=== PATIENT | male | born 1965 | race Caucasian/White ===

== ENCOUNTER 2022-07-30 10:30 | Day surgery (SDC) | payer OTHER ==
[2022-07-26 14:02] LABS: Absolute Lymphocytes (CBC) 1.9 K/uL (0.7-4.9); Lymphocytes % 31.6 % (15.3-44.8); MCV 92.1 fL (80-100); MPV 7.9 fL (7.6-11.3)
--- NOTE | 2022-07-26 14:47 | RAD REPORT ---
EXAM DESCRIPTION: RAD - Chest Pa And Lat (2 Views) - 07/26/2022 2:40 pm CLINICAL HISTORY: Pre op pending heart catheterization Chest pain. COMPARISON: No comparisons FINDINGS: The lungs are mildly emphysematous. Vague area of nodularity in the retrosternal airspace on the lateral view seen. This could be a true nodule or related to artifact. The heart is normal in size. No displaced fractures. IMPRESSION: Vague nodularity retrosternal airspace could be true nodule or artifactual. Recommend CT chest followup for visualization on a nonemergent basis. Mild COPD. The USPSTF recommends annual screening for lung cancer with low-dose CT (LDCT) in adults aged 50 to 80 years who have a 20 pack-year smoking history and currently smoke or have quit within the past 15 years.
--- NOTE | 2022-07-28 07:21 | EKG ---
Test Date: 2022-07-26 Test Time: 13:41:59 Pilot: ALENA MEASUREMENT RESULTS: Intervals: Rate: 61 DC: 172 QRSD: 92 QT: 414 QTc: 416 [place]: P: 65 DC: 172 QRS: 61 T: 64 INTERPRETIVE STATEMENTS: Normal sinus rhythm Nonspecific ST abnormality Abnormal ECG No previous ECG available for comparison Electronically Signed On 07-28-22 07:15:12 CDT by Shayne Badillo
[2022-07-30] MEDS ORDERED: NA CHLORIDE 0.9% 500 ML ONE (10:53)
[2022-07-30] MEDS ORDERED: LIDOCAINE 1% 20 ML MDV ONE (12:43)
[2022-07-30] MEDS ORDERED: HEPA 1000U/500MLS 2,000 UNIT/1,000 ML BAG IV ONE (12:43)
[2022-07-30] MEDS ORDERED: FENTANYL CITR 100 MCG/2 ML ONE (13:17)
[2022-07-30] MEDS ORDERED: HEPARIN 5000 UNIT/ML 1 ML VIAL ONE (13:18)
[2022-07-30] MEDS ORDERED: MIDAZOLAM HCL 2 MG/2 ML INJ ONE (13:18)
[2022-07-30] MEDS ORDERED: ASPIRIN 325 MG TAB ONE (13:18)
[2022-07-30] MEDS ORDERED: TICAGRELOR 90 MG TABLET PO ONE (13:18)
[2022-07-30] MEDS ORDERED: CLOPIDOGREL 75 MG TABLET ONE (13:18)
[2022-07-30] MEDS ORDERED: VERAPAMIL HCL 10 MG/4 ML VIAL IV ONE (13:18)
[2022-07-30] MEDS ORDERED: ATROPINE SULF 1 MG/10 ML SYR IV ONE (13:19)
[2022-07-30] MEDS ORDERED: HEPARIN 10,000 UNIT/10 ML VIAL IV ONE (13:19)
[2022-07-30 16:20] VITALS: O2SAT 98
[2022-07-30 16:23] VITALS: BP 155/66
--- NOTE | 2022-07-30 21:14 | OP ---
Date of Procedure: 07/30/2022 Surgeon: MOY HORN Procedures Performed: 1.Selective coronary angiogram. 2.Left heart catheterization. Indication: Chest pain with normal stress test. Access: Right radial artery 6-Panamanian closed with TR band. Complications: None. Bleeding: Less than 20 mL. Description Of Procedure: After risks, benefits, and alternatives were explained, patient agreed to procedure and signed informed consent. Patient was brought into the cardiac catheterization laborato ry, prepped and draped in a sterile fashion. Then, I accessed right radial artery using pediatric mi cropuncture kit, placed a 6-Panamanian Slender sheath. Then, I took 5-Panamanian [place] 4.0 catheter into the aortic root over a J-wire, engaged left main and the right coronary artery, and took standard views. Catheter was pushed over the wire into the LV, measured LVEDP. Pullback did not record any gradien t. Then, removed the catheter and the sheath and placed TR band with good hemostasis. Findings: 1.Left main is normal, large, long, and normal. 2.LAD is very large vessel. Proximal segment is normal. Mid segment right after the diagonal takeo ff becomes heavily calcified and severely diseased about 90%, very long lesion. Rest of the LAD appe ars to be normal. Diagonal branches are normal. 3.Left circumflex is moderate-sized and normal, normal OM branch. 4.RCA: Large and dominant with luminal irregularities. 5.Elevated LVEDP at 50 mmHg. Conclusion: 1.Severe mid LAD stenosis, heavily calcified, none. 2.Elevated LVEDP. Recommendation: Plan for complex PCI with atherectomy versus shockwave at [place] as soon as poss ible, to go to the emergency room with any chest pain. SR/MODL Voice ID: [id number] Report ID: [id number]
== END 2022-07-30 15:50 | disposition home or self-care (01) ==
LOC: CCL 10:30
PROVIDERS: ATTEND Internal Medicine
DX: I25.10 Atherosclerotic heart disease of native coronary artery without angina pectoris (principal); I49.3 Ventricular premature depolarization; E78.2 Mixed hyperlipidemia; N18.1 Chronic kidney disease, stage 1; Z82.49 Family history of ischemic heart disease and other diseases of the circulatory system
CPT/HCPCS: 93005; 85025; 80048; 36415; 85610; 85730; 71046; 93458; 76937; C1893; Q9966; J1644; J2001; J2250; J3010; J7040; J0461

== ENCOUNTER 2022-08-12 06:25 | Observation (INO) | payer OTHER ==
--- OUTSIDE RECORDS SUMMARY | 2022-08-12 06:28 | XMS REPORT | Clinical Summary ---
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 0 03/16/2018 Medical History Medical History Date Comments Hyperlipidemia 1994 Pravastatin since [age] controls it Migraine 1977 diminishing frequenc y/severity Hearing loss 1989 recurrent childhood ear infections/tympanoplasty scar tissue Diverticulitis 2014 I have a few moderat e diverticuli with occasional spasms Disorder of testis 1981 Testicular torsion, left testes removed Malignant melanoma [id number] LENTIGO MALIGNA RILEY NOMA Stage PT1A Family History Medical History Relation Name Comments -Multiple Myeloma Maternal Aunt Heather Sommer Relation Name Status Comments Maternal Aunt Heather Sommer Social History Tobacco Use Types Packs/Day Years Used Date Smoking Tobacco: Never Smokeless Tobacco: Never Alcohol Use Standard Drinks/Week Comments Yes 0 (1 standard drink = 0.6 oz pure alcoho l) Social drinking Sex Assigned at Date Recorded Not on file Obstetrics History Last Filed Vital Signs Not on file Plan of Treatment Health Maintenance Due Date Last Done Comments COVID-19 Vaccination (#1) 01/05/1965 Results Not on fileafter 08/12/2021 Insurance Payer Benefit Plan / Subscriber ID Effective Dates Phone Addre ss Type Group AETNA MANAGED AETNA O [id number] 2000-Present [id number] [facility] [place] [address] Guarantor Name Account Type Relation to Date of Phone Billing Address Patient Denia Troy Personal/Famil Self 1965 [address] (Home) [phone] [place], [place] (Work) [address] Denia Troy Personal/Famil Self 1965 [address] (Home) [phone] [place] (Work) [address] Denia Troy Personal/Famil Self 1965 [address] (Home) [phone] [place] ([place]) [id number] Care Teams Product Safety Compliance Leader Relationship Specialty Start Date End Date Landon Sevilla MD PCP - General Breast Surgery 03/07/[address] [place] [id number] Maximus Roman PCP - External Follow Up A Urology 03/15/18 MD [facility] [address] [place] [address] [id number]
--- OUTSIDE RECORDS SUMMARY | 2022-08-12 06:31 | XMS REPORT | Continuity of Care Document ---
:1965 Author Organization [facility] t Address [address] [place] [address] [place] [id number] Care Team Providers Name Role Phone Provider MD, Not In System Primary Care Physician UnavailBrendan Ricketts Attending Clinician Unavailable SALIMA GLASS Attending Clinician Unavailable Ortiz Claire DO Attending Clinician Salima Glass MD Attending Clinician Pc, Adc Echo Room 1 - Attending Clinician Unavailable Doctor Unassigned, [place] Attending Clinician Unavailable LILIAN MYRICK Attending Clinician Unavailable Brendan Duran Admitting Clinician Unavailable Payers Payer Name Policy Type Policy Number Effective Date Expiration Date S alfonso [employer] CHOICE POS [id number] 2018 00:00:00 II Problems Condition Condition Condition Status Onset Resolution Last Treating Co mments Source Name Details Category Date Date Treatment Clinician Date Malignant Malignant Disease Active Uni vers melanoma melanoma 1-24 ity of of right of right 00:00: [place] lower limb lower limb 00 MD including including [facility] No known No known Disease Unive rs active active ity of problems problems [facility] Allergies, Adverse Reactions, Alerts Allergy Allergy Status Severity Reaction(s) Onset Inactive Treating Comm ents Source Name Type Date Date Clinician No Known DA Active [facility] Allergie 6-16 Clear s 00:00: [place] 00 [facility] NO KNOWN Drug Active Univers ALLERGIE Class ity of S [facility] Family History Family Member Diagnosis Comments Start Date Stop Date Source Maternal aunt -Multiple Myeloma Univ [facility] [place] MD [employer] [place] Social History Social Habit Start Date Stop Date Quantity Comments Source Exposure to Not sure University SARS-CoV-2 (event) [facility] Gender identity Gnosticism [facility] Sexual orientation Method [facility] History SDOH 2020-01-23 2020-01-23 2 University o f Alcohol Frequency 00:00:00 00:00:00 [place] [facility] History SDMS 2020-01-23 2020-01-23 99 University o f Alcohol Std Drinks 00:00:00 00:00:00 [place] [facility] History SDOH 2020-01-23 2020-01-23 99 University o f Alcohol Binge 00:00:00 00:00:00 [place] [facility] Tobacco use and 2020-01-23 2020-01-23 Never used Universit y of exposure 00:00:00 00:00:00 [facility] Alcohol intake 2018-03-15 2018-03-15 Current drinker Unive rsity of 00:00:00 00:00:00 of alcohol [place] [facility] Alcohol Comment 2018-03-15 2018-03-15 Social drinking Univ ersity of 00:00:00 00:00:00 [place] [facility] Sex Assigned At [birth year] Universit y of 00:00:00 00:00:00 [place] [facility] Smoking Status Start Date Stop Date Source Tobacco smoking consumption [facility] unknown Never smoker [facility] Medications Ordered Filled Start Stop Current Ordering Indication Dosage Frequency Signature Comments Components Source Medication Medication Date Date Medication? Clinician (SIG) Name Name tc 2019-02- No 45mCi 45 Univers 99m-tetrofo 2-29 - millicurie i ty of smin 16:15: 16:08 , [place] ([facility]) 00 :00 Intravenou Medi ad injection s, ONCE, 1 Bran ch 45 dose, Tue millicurie 02/19/20 at 1015, Routine tc 2019-02- No 15.9mCi 15.9 Univers 99m-tetrofo 2-29 12-29 millicurie i ty of smin 14:16: 14:27 , [place] ([facility]) 00 :00 Intravenou Medi ad injection s, ONCE, 1 Bran ch 15.9 dose, Edilson stinson 02/19/20 at 0830, Routine atorvastati 2019- 2020- No 40mg Take 40 mg Univers n 40 mg 2-02 12-02 by mouth ity of tablet 16:35: 00:00 at [place] 58 :00 bedtime. Medical Branch atorvastati 2019-02 2020- No 40mg Take 40 mg Univers n 40 mg 2-02 12-02 by mouth ity of tablet 16:35: 00:00 at [place] 58 :00 bedtime. Medical Branch clomiPHENE 2020- Yes 25mg Take 25 mg U nivers 50 mg 2-02 by mouth 2 ity of tablet 15:52: (two) [place] 10 times per Medical week. Branch clomiPHENE 2020-1 Yes 25mg Take 25 mg U nivers 50 mg 2-02 by mouth 2 ity of tablet 15:52: (two) [place] 10 times per Medical week. Branch clomiPHENE 2020- Yes 25mg Take 25 mg U nivers 50 mg 2-02 by mouth 2 ity of tablet 15:52: (two) [place] 10 times per Medical week. Branch clomiPHENE 2020- Yes 25mg Take 25 mg U nivers 50 mg 2-02 by mouth 2 ity of tablet 15:52: (two) [place] 10 times per Medical week. Branch clomiPHENE 2020- Yes 25mg Take 25 mg U nivers 50 mg 2-02 by mouth 2 ity of tablet 15:52: (two) [place] 10 times per Medical week. Branch clomiPHENE 2020- Yes 25mg Take 25 mg U nivers 50 mg 2-02 by mouth 2 ity of tablet 15:52: (two) [place] 10 times per Medical week. Branch clomiPHENE 2020- Yes 25mg Take 25 mg U nivers 50 mg 2-02 by mouth 2 ity of tablet 15:52: (two) [place] 10 times per Medical week. Branch clomiPHENE 2020-1 Yes 25mg Take 25 mg U nivers 50 mg 2-02 by mouth 2 ity of tablet 15:52: (two) [place] 10 times per Medical week. Branch clomiPHENE 2020-1 Yes 25mg Take 25 mg U nivers 50 mg 2-02 by mouth 2 ity of tablet 15:52: (two) [place] 10 times per Medical week. Branch clomiPHENE 2019- Yes 25mg Take 25 mg U nivers 50 mg 2-02 by mouth 2 ity of tablet 15:52: (two) [place] 10 times per Medical week. Branch clomiPHENE 2019- Yes 25mg Take 25 mg U nivers 50 mg 2-02 by mouth 2 ity of tablet 15:52: (two) [place] 10 times per Medical week. Branch aspirin 81 2019- Yes 81mg Take 81 mg U nivers mg chewable 2-02 by mouth ity of tablet 15:51: daily. [address] aspirin 81 2019-02 Yes 81mg Take 81 mg U nivers mg chewable 2-02 by mouth ity of tablet 15:51: daily. [address] aspirin 81 2019-02 Yes 81mg Take 81 mg U nivers mg chewable 2-02 by mouth ity of tablet 15:51: daily. [address] aspirin 81 2019-02 Yes 81mg Take 81 mg U nivers mg chewable 2-02 by mouth ity of tablet 15:51: daily. [address] aspirin 81 2019-02 Yes 81mg Take 81 mg U nivers mg chewable 2-02 by mouth ity of tablet 15:51: daily. [address] aspirin 81 2019- Yes 81mg Take 81 mg U nivers mg chewable 2-02 by mouth ity of tablet 15:51: daily. [address] aspirin 81 2019- Yes 81mg Take 81 mg U nivers mg chewable 2-02 by mouth ity of tablet 15:51: daily. [address] aspirin 81 2019- Yes 81mg Take 81 mg U nivers mg chewable 2-02 by mouth ity of tablet 15:51: daily. [address] aspirin 81 2019- Yes 81mg Take 81 mg U nivers mg chewable 2-02 by mouth ity of tablet 15:51: daily. [address] aspirin 81 2019- Yes 81mg Take 81 mg U nivers mg chewable 2-02 by mouth ity of tablet 15:51: daily. [address] aspirin 81 2019- Yes 81mg Take 81 mg U nivers mg chewable 2-02 by mouth ity of tablet 15:51: daily. [address] atorvastati 2019-02 Yes [id number] 40mg Take 1 Univers n 40 mg 2-02 tablet by ity of tablet 00:00: mouth [place] 00 daily. [facility] Yes [id number] 40mg Take 1 Univers n 40 mg 2-02 tablet by ity of tablet 00:00: mouth [place] 00 daily. [facility]- Yes [id number] 40mg Take 1 Univers n 40 mg 2-02 tablet by ity of tablet 00:00: mouth [place] 00 daily. [facility]- Yes [id number] 40mg Take 1 Univers n 40 mg 2-02 tablet by ity of tablet 00:00: mouth [place] 00 daily. [facility] 2019-02 Yes [id number] 40mg Take 1 Univers n 40 mg 2-02 tablet by ity of tablet 00:00: mouth [place] 00 daily. [facility] 2019-02 Yes [id number] 40mg Take 1 Univers n 40 mg 2-02 tablet by ity of tablet 00:00: mouth [place] 00 daily. [facility] 2019-02 Yes [id number] 40mg Take 1 Univers n 40 mg 2-02 tablet by ity of tablet 00:00: mouth [place] 00 daily. [facility] 2019-02 Yes [id number] 40mg Take 1 Univers n 40 mg 2-02 tablet by ity of tablet 00:00: mouth [place] 00 daily. [facility] Branch atorvasta 2019-02 Yes [id number] 40mg Take 1 Univers n 40 mg 2-02 tablet by ity of tablet 00:00: mouth [place] 00 daily. [facility] 2019- Yes [id number] 40mg Take 1 Univers n 40 mg 2-02 tablet by ity of tablet 00:00: mouth [place] 00 daily. Medical Branch atorvasta 2019-02 Yes [id number] 40mg Take 1 Univers n 40 mg 2-02 tablet by ity of tablet 00:00: mouth [place] 00 daily. [facility] Branch atorvasta 2019-02 2020- No [id number] 40mg Take 1 Univers n 40 mg 2-02 12-02 tablet by ity of tablet 00:00: 00:00 mouth [place] 00 :00 daily. [facility] Branch atorvasta 2019-02 2020- No [id number] 40mg Take 1 Univers n 40 mg 2-02 12-02 tablet by ity of tablet 00:00: 00:00 mouth [place] 00 :00 daily. Medical Branch clomiPHENE 2017-02 Yes Univers (CLOMID) 50 2- ity of mg tablet 00:00: [place] 00 MD Kenny rushing [facility] clomiPHENE 2017-02 Yes Univers (CLOMID) 50 - ity of mg tablet 00:00: [place] 00 MD [facility] rushing [facility] pravastatin Yes Univer s (PRAVACHOL) 02-21 ity of 40 mg 00:00: [place] tablet 00 MD [facility] rushing [facility] aspirin 81 Yes Univers mg EC 02-21 ity of tablet 00:00: [place] 00 MD [facility] rushing [facility] aspirin 81 Yes Univers mg EC 02-21 ity of tablet 00:00: [place] 00 MD [facility] rushing [facility] pravastatin Yes Univer s (PRAVACHOL) 02-21 ity of 40 mg 00:00: [place] tablet 00 MD Kenny rushing [facility] Immunizations Ordered Filled Immunization Date Status Comments [facility] e Immunization Name Name Influenza Virus 2019-11-06 Completed Universit y of Vaccine Quad IM 3+ 00:00:00 [facility] Influenza Virus 2019-11-06 Completed Universit y of Vaccine Quad IM 3+ 00:00:00 [facility] Influenza Virus 2019-11-06 Completed Universit y of Vaccine Quad IM 3+ 00:00:00 [facility] Influenza Virus 2019-11-06 Completed Universit y of Vaccine Quad IM 3+ 00:00:00 [facility] Influenza Virus 2019-11-06 Completed Universit y of Vaccine Quad IM 3+ 00:00:00 [facility] Influenza Virus 2019-11-06 Completed Universit y of Vaccine Quad IM 3+ 00:00:00 [facility] Influenza Virus 2019-11-06 Completed Universit y of Vaccine Quad IM 3+ 00:00:00 [facility] Influenza Virus 2019-11-06 Completed Universit y of Vaccine Quad IM 3+ 00:00:00 [facility] Influenza Virus 2019-11-06 Completed Universit y of Vaccine Quad IM 3+ 00:00:00 [facility] Influenza Virus 2019-11-06 Completed Universit y of Vaccine Quad IM 3+ 00:00:00 [facility] Influenza Virus 2019-11-06 Completed Universit y of Vaccine Quad IM 3+ 00:00:00 [facility] Zoster Vaccine 2019-06-23 Completed University of Recombinant 00:00:00 [facility] Zoster Vaccine 2019-06-23 Completed University of Recombinant 00:00:00 [facility] Zoster Vaccine 2019-06-23 Completed University of Recombinant 00:00:00 [facility] Zoster Vaccine 2019-06-23 Completed University of Recombinant 00:00:00 [facility] Zoster Vaccine 2019-06-23 Completed University of Recombinant 00:00:00 [facility] Zoster Vaccine 2019-06-23 Completed University of Recombinant 00:00:00 [facility] Zoster Vaccine 2019-06-23 Completed University of Recombinant 00:00:00 [facility] Zoster Vaccine 2019-06-23 Completed University of Recombinant 00:00:00 [facility] Zoster Vaccine 2019-06-23 Completed University of Recombinant 00:00:00 [facility] Zoster Vaccine 2019-06-23 Completed University of Recombinant 00:00:00 [facility] Zoster Vaccine 2019-06-23 Completed University of Recombinant 00:00:00 [facility] Zoster Vaccine 2019-03-06 Completed University of Recombinant 00:00:00 [facility] Zoster Vaccine 2019-03-06 Completed University of Recombinant 00:00:00 [facility] Zoster Vaccine 2019-03-06 Completed University of Recombinant 00:00:00 [facility] Zoster Vaccine 2019-03-06 Completed University of Recombinant 00:00:00 [facility] Zoster Vaccine 2019-03-06 Completed University of Recombinant 00:00:00 [facility] Zoster Vaccine 2019-03-06 Completed University of Recombinant 00:00:00 [facility] Zoster Vaccine 2019-03-06 Completed University of Recombinant 00:00:00 [facility] Zoster Vaccine 2019-03-06 Completed University of Recombinant 00:00:00 [facility] Zoster Vaccine 2019-03-06 Completed University of Recombinant 00:00:00 [facility] Zoster Vaccine 2019-03-06 Completed University of Recombinant 00:00:00 [facility] Zoster Vaccine 2019-03-06 Completed University of Recombinant 00:00:00 [facility] TDAP 2013-06-04 Completed University of 00:00:00 [facility] TDAP 2013-06-04 Completed University of 00:00:00 [facility] TDAP 2013-06-04 Completed University of 00:00:00 [facility] TDAP 2013-06-04 Completed University of 00:00:00 [place] [facility] TDAP 2013-06-04 Completed University of 00:00:00 [place] [facility] TDAP 2013-06-04 Completed University of 00:00:00 [place] [facility] TDAP 2013-06-04 Completed University of 00:00:00 [place] [facility] TDAP 2013-06-04 Completed University of 00:00:00 [place] [facility] TDAP 2013-06-04 Completed University of 00:00:00 [place] [facility] TDAP 2013-06-04 Completed University of 00:00:00 [place] [facility] TDAP 2013-06-04 Completed University of 00:00:00 [facility] HEP B, Adult Dosage 2011-12-27 Completed Unive rsity of 00:00:00 [place] [facility] Hepatitis A Adult 2011-12-27 Completed Univers ity of 00:00:00 [place] [facility] HEP B, Adult Dosage 2011-12-27 Completed Unive rsity of 00:00:00 [place] [facility] Hepatitis A Adult 2011-12-27 Completed Univers ity of 00:00:00 [place] [facility] HEP B, Adult Dosage 2011-12-27 Completed Unive rsity of 00:00:00 [place] [facility] Hepatitis A Adult 2011-12-27 Completed Univers ity of 00:00:00 [place] [facility] HEP B, Adult Dosage 2011-12-27 Completed Unive rsity of 00:00:00 [place] [facility] Hepatitis A Adult 2011-12-27 Completed Univers ity of 00:00:00 [place] [facility] HEP B, Adult Dosage 2011-12-27 Completed Unive rsity of 00:00:00 [place] [facility] Hepatitis A Adult 2011-12-27 Completed Univers ity of 00:00:00 [place] [facility] HEP B, Adult Dosage 2011-12-27 Completed Unive rsity of 00:00:00 [place] [facility] HEP B, Adult Dosage 2011-12-27 Completed Unive rsity of 00:00:00 [place] [facility] Hepatitis A Adult 2011-12-27 Completed Univers ity of 00:00:00 [place] [facility] HEP B, Adult Dosage 2011-12-27 Completed Unive rsity of 00:00:00 [place] [facility] Hepatitis A Adult 2011-12-27 Completed Univers ity of 00:00:00 [place] [facility] HEP B, Adult Dosage 2011-12-27 Completed Unive rsity of 00:00:00 [place] [facility] Hepatitis A Adult 2011-12-27 Completed Univers ity of 00:00:00 [place] [facility] Hepatitis A Adult 2011-12-27 Completed Univers ity of 00:00:00 [place] [facility] HEP B, Adult Dosage 2011-12-27 Completed Unive rsity of 00:00:00 [place] [facility] Hepatitis A Adult 2011-12-27 Completed Univers ity of 00:00:00 [place] [facility] HEP B, Adult Dosage 2011-12-27 Completed Unive rsity of 00:00:00 [place] [facility] Hepatitis A Adult 2011-12-27 Completed Univers ity of 00:00:00 [place] [facility] HEP B, Adult Dosage 2007-04-10 Completed Unive rsity of 00:00:00 [facility] Tetanus/Diptheria 2007-04-10 Completed Univers ity of 00:00:00 [place] [facility] HEP B, Adult Dosage 2007-04-10 Completed Unive rsity of 00:00:00 [place] [facility] Tetanus/Diptheria 2007-04-10 Completed Univers ity of 00:00:00 [place] [facility] HEP B, Adult Dosage 2007-04-10 Completed Unive rsity of 00:00:00 [place] [facility] Tetanus/Diptheria 2007-04-10 Completed Univers ity of 00:00:00 [place] [facility] HEP B, Adult Dosage 2007-04-10 Completed Unive rsity of 00:00:00 [place] [facility] Tetanus/Diptheria 2007-04-10 Completed Univers ity of 00:00:00 [place] [facility] HEP B, Adult Dosage 2007-04-10 Completed Unive rsity of 00:00:00 [place] [facility] Tetanus/Diptheria 2007-04-10 Completed Univers ity of 00:00:00 [place] [facility] HEP B, Adult Dosage 2007-04-10 Completed Unive rsity of 00:00:00 [place] [facility] HEP B, Adult Dosage 2007-04-10 Completed Unive rsity of 00:00:00 [place] [facility] Tetanus/Diptheria 2007-04-10 Completed Univers ity of 00:00:00 [place] [facility] HEP B, Adult Dosage 2007-04-10 Completed Unive rsity of 00:00:00 [place] [facility] Tetanus/Diptheria 2007-04-10 Completed Univers ity of 00:00:00 [place] [facility] HEP B, Adult Dosage 2007-04-10 Completed Unive rsity of 00:00:00 [place] [facility] Tetanus/Diptheria 2007-04-10 Completed Univers ity of 00:00:00 [place] [facility] Tetanus/Diptheria 2007-04-10 Completed Univers ity of 00:00:00 [place] [facility] HEP B, Adult Dosage 2007-04-10 Completed Unive rsity of 00:00:00 [place] [facility] Tetanus/Diptheria 2007-04-10 Completed Univers ity of 00:00:00 [place] [facility] HEP B, Adult Dosage 2007-04-10 Completed Unive rsity of 00:00:00 [place] [facility] Tetanus/Diptheria 2007-04-10 Completed Univers ity of 00:00:00 [place] [facility] HEP B, Adult Dosage 2007-03-09 Completed Unive rsity of 00:00:00 [place] [facility] Polio (IPV/OPV) 2007-03-09 Completed Universit y of 00:00:00 [place] [facility] HEP B, Adult Dosage 2007-03-09 Completed Unive rsity of 00:00:00 [place] [facility] Polio (IPV/OPV) 2007-03-09 Completed Universit y of 00:00:00 [place] [facility] HEP B, Adult Dosage 2007-03-09 Completed Unive rsity of 00:00:00 [place] [facility] Polio (IPV/OPV) 2007-03-09 Completed Universit y of 00:00:00 [place] [facility] HEP B, Adult Dosage 2007-03-09 Completed Unive rsity of 00:00:00 [place] [facility] Polio (IPV/OPV) 2007-03-09 Completed Universit y of 00:00:00 [place] [facility] HEP B, Adult Dosage 2007-03-09 Completed Unive rsity of 00:00:00 [place] [facility] Polio (IPV/OPV) 2007-03-09 Completed Universit y of 00:00:00 [place] [facility] HEP B, Adult Dosage 2007-03-09 Completed Unive rsity of 00:00:00 [place] [facility] Polio (IPV/OPV) 2007-03-09 Completed Universit y of 00:00:00 [place] [facility] HEP B, Adult Dosage 2007-03-09 Completed Unive rsity of 00:00:00 [place] [facility] HEP B, Adult Dosage 2007-03-09 Completed Unive rsity of 00:00:00 [place] [facility] Polio (IPV/OPV) 2007-03-09 Completed Universit y of 00:00:00 [place] [facility] Polio (IPV/OPV) 2007-03-09 Completed Universit y of 00:00:00 [place] [facility] HEP B, Adult Dosage 2007-03-09 Completed Unive rsity of 00:00:00 [place] [facility] Polio (IPV/OPV) 2007-03-09 Completed Universit y of 00:00:00 [place] [facility] HEP B, Adult Dosage 2007-03-09 Completed Unive rsity of 00:00:00 [place] [facility] Polio (IPV/OPV) 2007-03-09 Completed Universit y of 00:00:00 [place] [facility] HEP B, Adult Dosage 2007-03-09 Completed Unive rsity of 00:00:00 [place] [facility] Polio (IPV/OPV) 2007-03-09 Completed Universit y of 00:00:00 [facility] Hepatitis A Adult 1997-10-31 Completed Univers ity of 00:00:00 [place] [facility] Hepatitis A Adult 1997-10-31 Completed Univers ity of 00:00:00 [place] [facility] Hepatitis A Adult 1997-10-31 Completed Univers ity of 00:00:00 [place] [facility] Hepatitis A Adult 1997-10-31 Completed Univers ity of 00:00:00 [place] [facility] Hepatitis A Adult 1997-10-31 Completed Univers ity of 00:00:00 [place] [facility] Hepatitis A Adult 1997-10-31 Completed Univers ity of 00:00:00 [place] [facility] Hepatitis A Adult 1997-10-31 Completed Univers ity of 00:00:00 [place] [facility] Hepatitis A Adult 1997-10-31 Completed Univers ity of 00:00:00 [place] [facility] Hepatitis A Adult 1997-10-31 Completed Univers ity of 00:00:00 [place] [facility] Hepatitis A Adult 1997-10-31 Completed Univers ity of 00:00:00 [place] [facility] Hepatitis A Adult 1997-10-31 Completed Univers ity of 00:00:00 [facility] Hepatitis A Adult 1997-03-21 Completed Univers ity of 00:00:00 [facility] TDAP 1997-03-21 Completed University of 00:00:00 [facility] Hepatitis A Adult 1997-03-21 Completed Univers ity of 00:00:00 [facility] TDAP 1997-03-21 Completed University [facility] 00:00:00 [facility] Hepatitis A Adult 1997-03-21 Completed Univers ity of 00:00:00 [facility] AP 1997-03-21 Completed University [facility] 00:00:00 [facility] Hepatitis A Adult 1997-03-21 [facility] Hepatitis A Adult 1997-03-21 Completed Univers ity of 00:00:00 [facility] AP 1997-03-21 Completed University of 00:00:00 [facility] Hepatitis A Adult 1997-03-21 Completed [facility] 00:[facility] Hepatitis A Adult 1997-03-21 Completed [facility] 00:00:00 [facility] Hepatitis A Adult 1997-03-21 Completed [facility] 00:00:00 [facility] Hepatitis A Adult 1997-03-21 Completed [facility] 00:00:00 [facility] Hepatitis A Adult 1997-03-21 Completed [facility] 00:[facility] Hepatitis A Adult 1997-03-21 Completed [facility] 00:[facility]:00 [facility] Polio (IPV/OPV) 1978-10-10 Completed Universit y of 00:00:00 [facility] 1978-10-10 Completed University of 00:00:00 [facility] Polio (IPV/OPV) 1978-10-10 Completed Universit y of 00:00:00 [facility] 1978-10-10 Completed University of 00:00:00 [facility] Polio (IPV/OPV) 1978-10-10 Completed Universit y of 00:00:00 [facility] 1978-10-10 Completed University of 00:00:00 [place] [facility] Polio (IPV/OPV) 1978-10-10 Completed Universit y of 00:00:00 [place] [facility] TDAP 1978-10-10 Completed University of 00:00:00 [place] [facility] Polio (IPV/OPV) 1978-10-10 Completed Universit y of 00:00:00 [place] [facility] TDAP 1978-10-10 Completed University of 00:00:00 [place] [facility] TDAP 1978-10-10 Completed University of 00:00:00 [place] [facility] Polio (IPV/OPV) 1978-10-10 Completed Universit y of 00:00:00 [place] [facility] TDAP 1978-10-10 Completed University of 00:00:00 [place] [facility] Polio (IPV/OPV) 1978-10-10 Completed Universit y of 00:00:00 [place] [facility] TDAP 1978-10-10 Completed University of 00:00:00 [place] [facility] Polio (IPV/OPV) 1978-10-10 Completed Universit y of 00:00:00 [place] [facility] Polio (IPV/OPV) 1978-10-10 Completed Universit y of 00:00:00 [place] [facility] TDAP 1978-10-10 Completed University of 00:00:00 [place] [facility] Polio (IPV/OPV) 1978-10-10 Completed Universit y of 00:00:00 [place] [facility] TDAP 1978-10-10 Completed [facility] 00:00:00 [facility] Polio (IPV/OPV) 1978-10-10 Completed [facility] 00:00:00 [place] [facility] Measles 1976-06-24 Completed [facility] 00:00:00 [facility] Measles 1976-06-24 Completed [facility] 00:00:00 [facility] Measles 1976-06-24 Completed [facility] 00:00:00 [facility] Measles 1976-06-24 Completed [facility] 00:00:00 [facility] Measles 1976-06-24 Completed [facility] 00:00:00 [facility] Measles 1976-06-24 Completed [facility] 00:00:00 [facility] Measles 1976-06-24 Completed [facility] 00:00:00 [facility] Measles 1976-06-24 Completed [facility] 00:00:00 [facility] Measles 1976-06-24 Completed [facility] 00:00:00 [facility] Measles 1976-06-24 Completed [facility] 00:00:00 [facility] Measles 1976-06-24 Completed [facility] 00:00:00 [facility] TDAP 1969-09-11 Completed [facility] 00:00:00 [facility] Polio (IPV/OPV) 1969-09-11 Completed [facility] 00:[facility]:00 [facility] TDAP 1969-09-11 Completed [facility] 00:00:00 [facility] Polio (IPV/OPV) 1969-09-11 Completed [facility]it [facility] 00:00:00 [facility] TDAP 1969-09-11 Completed [facility] 00:00:00 [facility] Polio (IPV/OPV) 1969-09-11 Completed [facility] 00:00:00 [facility] TDAP 1969-09-11 Completed [facility] 00:00:00 [facility] Polio (IPV/OPV) 1969-09-11 Completed [facility] 00:00:00 [facility] TDAP 1969-09-11 Completed [facility] 00:00:00 [facility] TDAP 1969-09-11 Completed [facility] 00:00:00 [facility] Polio (IPV/OPV) 1969-09-11 Completed [facility]it [facility] 00:00:00 [facility] TDAP 1969-09-11 Completed [facility] 00:00:00 [facility] Polio (IPV/OPV) 1969-09-11 Completed [facility] 00:00:00 [facility] TDAP 1969-09-11 Completed [facility] 00:00:00 [facility] Polio (IPV/OPV) 1969-09-11 Completed [facility]it y [facility] 00:00:00 [facility] TDAP 1969-09-11 Completed [facility] 00:00:00 [facility] Polio (IPV/OPV) 1969-09-11 Completed [facility]it [facility] 00:00:00 [facility] Polio (IPV/OPV) 1969-09-11 Completed [facility] 00:00:00 [facility] TDAP 1969-09-11 Completed [facility] 00:00:00 [facility] Polio (IPV/OPV) 1969-09-11 Completed [facility] 00:00:00 [facility] TDAP 1969-09-11 Completed [facility] 00:00:00 [facility] Polio (IPV/OPV) 1969-09-11 Completed [facility]it [facility] 00:00:00 [facility] Rubella 1969-06-21 Completed [facility] 00:00:00 [facility] Rubella 1969-06-21 Completed [facility] 00:00:00 [facility] Rubella 1969-06-21 Completed [facility] 00:00:00 [facility] Rubella 1969-06-21 Completed [facility] 00:00:00 [facility] Rubella 1969-06-21 Completed [facility] 00:00:00 [facility] Rubella 1969-06-21 Completed [facility] 00:00:00 [facility] Rubella 1969-06-21 Completed [facility] 00:00:00 [facility] Rubella 1969-06-21 Completed [facility] 00:00:00 [facility] Rubella 1969-06-21 Completed [facility] 00:00:00 [facility] Rubella 1969-06-21 Completed [facility] 00:00:00 [facility] Rubella 1969-06-21 Completed [facility] 00:00:00 [facility] Measles 1965-11-12 Completed [facility] 00:00:00 [facility] Measles 1965-11-12 Completed [facility] 00:00:00 [facility] Measles 1965-11-12 Completed [facility] 00:00:00 [facility] Measles 1965-11-12 Completed [facility] 00:00:00 [facility] Measles 1965-11-12 Completed [facility] 00:00:00 [facility] Measles 1965-11-12 Completed [facility] 00:00:00 [facility] Measles 1965-11-12 Completed [facility] 00:00:00 [facility] Measles 1965-11-12 Completed [facility] 00:00:00 [facility] Measles 1965-11-12 Completed [facility] 00:00:00 [facility] Measles 1965-11-12 Completed [facility] 00:00:00 [facility] Measles 1965-11-12 Completed [facility] 00:00:00 [facility] Vital Signs Vital Name Observation Time Observation Value Comments Source Systolic blood 2020-02-19 14:43:00 104 mm[Hg] Univer sity of [facility] Diastolic blood 2020-02-19 14:43:00 67 mm[Hg] Unive rsity of pressure [facility] Heart rate 2020-02-19 14:43:00 65 /min [facility] Body temperature 2020-02-19 14:43:00 36.11 [place] [facility] ers[facility] [place] [facility] Respiratory rate 2020-02-19 14:43:00 20 /min Univ ersity of [facility] Oxygen saturation in 2020-02-19 14:43:00 97 /min University of Arterial blood by [facility] Pulse oximetry Branch Body weight 2020-02-19 13:00:00 97.07 kg [facility]i [facility] BMI 2020-02-19 13:00:00 26.75 kg/m2 Universi ty of [facility] Systolic blood 2020-01-24 19:14:00 122 mm[Hg] Univer sity of pressure [facility] Diastolic blood 2020-01-24 19:14:00 73 mm[Hg] Unive rsity of pressure [facility] Heart rate 2020-01-24 19:14:00 72 /min [facility] Body height 2020-01-24 19:14:00 190.5 cm [facility] Body weight 2020-01-24 19:14:00 97.07 kg [facility] BMI 2020-01-24 19:14:00 26.75 kg/m2 [facility] Systolic blood 2020-01-23 15:55:00 129 mm[Hg] Univer sity of pressure [facility] Diastolic blood 2020-01-23 15:55:00 78 mm[Hg] Unive rsity of pressure [facility] Heart rate 2020-01-23 15:55:00 76 /min [facility]i [facility] Respiratory rate 2020-01-23 15:48:00 19 /min Univ [facility] Body height 2020-01-23 15:48:00 190.5 cm [facility] Body weight 2020-01-23 15:48:00 99.292 kg [facility] BMI 2020-01-23 15:48:00 27.36 kg/m2 [facility] Oxygen saturation in 2020-01-23 15:48:00 96 /min University of Arterial blood by [facility] Pulse oximetry Branch Procedures Procedure Date / Time Performed Performing Clinician Sourc e NM MYOCARDIUM 2020-02-19 17:40:00 [facility] [place] [facility] n[facility] REST NM MYOCARDIUM 2020-02-19 17:40:00 Maria Luisa, [facility] PERFUSION STRESS AND Medical Bra nch REST NM MYOCARDIUM 2020-02-19 17:40:00 Maria Luisa [facility] PERFUSION STRESS AND Medical Bra nch REST NM MYOCARDIUM 2020-02-19 17:40:00 Maria Luisa [facility] PERFUSION STRESS AND Medical Bra nch REST POCT GLUCOSE 2020-02-19 14:39:00 Doctor Unassigned, No [facility] (AUTOMATED) Name Medical Branch ASSIGNMENT OF BENEFITS 2020-01-23 15:19:04 Doctor Unassigned, No [facility] Name Medical Branch Plan of Care Planned Activity Planned Date Details Comments Source Future Scheduled 2022-08-10 [facility] Test 09:43:14 malignant neoplasm of colon (procedure) [code = 246577411] Future Scheduled 2022-08-10 [facility] Test 09:43:14 malignant neoplasm of colon (procedure) [code = 124247513] Future Scheduled 2022-08-10 [facility] Test 09:43:14 malignant neoplasm of colon (procedure) [code = 154035645] Future Scheduled 2022-08-10 COVID-19 VACCINE (#[facility]) [facility]:14 [code = COVID-19 VACCINE (#1)] Future Scheduled 2022-08-10 Hepatitis C screening [facility] 09:43:14 (procedure) [code = 785595674] Future Scheduled 2022-08-10 [facility] C [facility] 09:43:14 (procedure) [code = 259533888] Future Scheduled 2022-08-10 [facility] Test 09:43:14 malignant neoplasm of colon (procedure) [code = 816562672] Future Scheduled 2022-08-10 [facility] Test 09:43:14 malignant neoplasm of colon (procedure) [code = 657889293] Future Scheduled 2022-08-10 SHINGLES VACCINES (1 [facility] 09:43:14 of 2) [code = SHINGLES VACCINES (1 of 2)] Future Scheduled 2022-08-10 [facility]UENZA [facility]ACCINE [facility] 09:43:14 [code = INFLUENZA VACCINE] Future Scheduled 2022-08-10 [facility] Test 09:43:14 malignant neoplasm of colon (procedure) [code = 971580128] Future Scheduled 2022-08-10 [facility] Test 09:43:14 malignant neoplasm of colon (procedure) [code = 747298882] Future Scheduled 2022-08-10 [facility] Test 09:43:14 malignant neoplasm of colon (procedure) [code = 111854973] Future Scheduled 2022-08-10 COVID-19 VACCINE (#1) [facility] 09:43:14 [code = COVID-19 VACCINE (#1)] Future Scheduled 2022-08-10 [facility] Test 09:43:14 malignant neoplasm of colon (procedure) [code = 097524921] Future Scheduled 2022-08-10 [facility] Test 09:43:14 malignant neoplasm of colon (procedure) [code = 052066553] Future Scheduled 2022-08-10 SHINGLES VACCINES (1 [facility] 09:43:14 of 2) [code = SHINGLES VACCINES (1 of 2)] Future Scheduled 2022-08-10 [facility]ENZA VACCINE [facility] 09:43:14 [code = INFLUENZA VACCINE] Future Scheduled 2021-08-26 COVID-19 Vaccination [facility] [place] Test 06:04:48 (#1) [code = COVID-19 [facility] (#1)] Center Future Scheduled 2021-08-26 COVID-19 Vaccination [facility] [place] Test 06:04:48 (#1) [code = COVID-19 [facility] (#1)] Center Encounters Start End Encounter Admission Attending Care Care Encounter Source Date/Time Date/Time Type Type Clinicians Facility Department ID 2020-12-20 Emergency [facility] [id number] Univers 13:32:34 [facility] 2022-08-10 2022-08-11 Inpatient SHAZIA DuranFIDENCIO INTE.02 [id number] [facility] 09:42:00 12:21:00 Brendan Rucker [facility] 2021-01-27 2021-01-27 Outpatient Jennifer GLASS, [facility] [id number] Univers 13:00:00 13:00:00 SALIMA owen f [facility] 2020-05-03 2020-05-03 [facility] [id number] Univers 00:00:00 00:00:00 Outreach Ortiz MELÉNDEZ [id number] i ty of Aron [facility] [id number] [id number] Hi dical [address] 2020-02-19 2020-02-19 Emergency [facility] [id number] Univers 08:40:00 09:07:00 [place] [id number] [place] [id number] [facility] [address] 2020-02-19 2020-02-19 [facility] 1.2.840.114 [id number] Univers 07:55:27 08:39:00 Encounter Salima [place] [id number] ity [place] [id number] [facility] [address] 2020-02-19 2020-02-19 [facility] 1.2.840.114 [id number] Univers 07:55:15 08:39:00 Encounter Qiangjun [place] [id number] [facility] [id number] [address] 2020-02-19 2020-02-19 [facility] 1.2.840.114 [id number] Univers 07:55:01 08:39:00 Encounter Qiangjun [place] [id number] [place] [id number] [address] 2020-02-19 2020-02-19 [facility] 1.2.840.114 [id number] Univers 07:54:28 07:54:28 Encounter Qiangjun [place] [id number] ity [place] [id number] [address] 2020-02-19 2020-02-19 [facility] [id number] Univers 07:54:28 07:54:28 SALIMA [facility]y [facility] 2020-01-25 2020-01-25 Patient Maria Luisa [facility] 1.2.840.114 [id number] Univers 00:00:00 00:00:00 Secure Msg [facility] [id number] [id number] [phone] [address] Office [facility] 2020-01-25 2020-01-25 Patient Maria Luisa WILILLY 1.2.840.114 [id number] Univers 00:00:00 00:00:00 Secure Msg [facility] [id number] [id number] [id number] [address] 2020-01-24 2020-01-24 Laboratory Pc, Adc Echo Room 1 - [facility] 1 .2.840.114 [id number] Univers 13:01:30 14:01:30 Only Salima Glass [id number] ity [id number] [phone] Hi dical nal [address] [place] [address] 2020-01-24 2020-01-24 Outpatient R [facility] [id number] Univers 13:00:00 13:00:00 [facility] 2020-01-23 2020-01-23 [facility] 1.2.840.114 [id number] Univers 09:19:15 10:44:28 Visit Salima Perez [id number] ity [place] [id number] [phone] Hi dical nal [address] [place] [address] 2020-01-23 2020-01-23 [facility] [id number] Univers 09:20:00 09:20:00 SALIMA [facility] 2020-01-23 2020-01-23 Orders Doctor MOLINA 1.2.840.114 [id number] Univers 00:00:00 00:00:00 Only Unassigned, RYAN [id number] ity of [place] [facility] 4.2.7.2.686 [place] as [phone] [facility] 009 Branch 2020-01-10 2020-01-10 [facility] [id number] [place] 00:00:00 00:00:00 LILIAN Mcintyre[address] [facility] [address] 2020-01-10 2020-01-10 Outpatient [facility] [id number] [place] 00:00:00 00:00:00 LILIAN Lambert Method i [facility] Results Test Description Test Time Test Comments Results Result Comments Source CBC W/AUTO DIFF 2022-08-11 08:39:00 Test Item Value Reference Range Interpretation Comme nts WHITE BLOOD CELL (test code = WBC) 10.8 x10 3/uL 4.5-11.0 RED BLOOD CELL (test code = RBC) 5.00 x10 6/uL 4.00-5.60 N HEMOGLOBIN (test code = HGB) 15.7 g/dL 12.5-16.9 N HEMATOCRIT (test code = HCT) 45.3 % 37.5-50.7 N MEAN CELL VOLUME (test code = MCV) 90.6 fL 81.0-99.0 N MEAN CELL HGB (test code = MCH) 31.4 pg 27.0-33.0 N MEAN CELL HGB CONCETRATION (test code = MCHC) 34.7 g/dL 33.0-37. 0 N RED CELL DISTRIBUTION WIDTH CV (test code = RDW) 12.1 % 11.5- 14.5 N RED CELL DISTRIBUTION WIDTH SD (test code = RDW-SD) 39.5 fL 37 .0-54.0 N PLATELET COUNT (test code = PLT) 164 x10 3/uL 150-400 N MEAN PLATELET VOLUME (test code = MPV) 10.0 fL 7.0-9.0 H NEUTROPHIL % (test code = NT%) 77.4 % 56.0-77.0 H IMMATURE GRANULOCYTE % (test code = IG%) 0.3 % 0.0-2.0 N LYMPHOCYTE % (test code = LY%) 13.6 % 14.0-32.0 L MONOCYTE % (test code = MO%) 8.0 % 4.8-9.0 N EOSINOPHIL % (test code = EO%) 0.4 % 0.3-3.7 N BASOPHIL % (test code = BA%) 0.3 % 0.0-2.0 N NUCLEATED RBC % (test code = NRBC%) 0.0 % 0-0 N NEUTROPHIL # (test code = NT#) 8.34 x10 3/uL 2.0-7.6 H IMMATURE GRANULOCYTE # (test code = IG#) 0.03 x10 3/uL 0.00-0.03 N LYMPHOCYTE # (test code = LY#) 1.46 x10 3/uL 1.0-3.8 N MONOCYTE # (test code = MO#) 0.86 x10 3/uL 0.1-0.8 H EOSINOPHIL # (test code = EO#) 0.04 x10 3/uL 0.0-0.2 N BASOPHIL # (test code = BA#) 0.03 x10 3/uL 0.0-0.2 N NUCLEATED RBC # (test code = NRBC#) 0.00 x10 3/uL 0.0-0.1 N MANUAL DIFF REQUIRED (test code = MDIFF) NO BASIC METABOLIC [id number] 07:45:00 Test Item Value Reference Range Interpretation Comments SODIUM (test code = 136 mEq/L 134-147 N NA) POTASSIUM (test code 3.8 mEq/L 3.4-5.0 N = K) CHLORIDE (test code 103 mEq/L 100-108 N = CL) CARBON DIOXIDE (test 24 mEq/l 21-33 N code = CO2) ANION GAP (test code 13 0-20 N = GAP) GLUCOSE (test code = 99 mg/dL 70-110 N GLU) BLOOD UREA NITROGEN 12 mg/dL 7-18 N (test code = BUN) GLOMERULAR 70.1 90-95 L The Glomerular FILTRATION RATE Filtration R ate is a (test code = GFR) calculated parameterbased on serum Creatinine, pat ient age and sex. GFR va luesless than 60 mL/min/ 1.73 square meters a re indicative ofCh ronic Kidney Disease. Values less than 15 mL/min/1.73squa re meters indicate Kidney failure. The calculation forGFR is based on the CKD-EPI (2020) calculat ion. This formulais race indifferent and is the recommended for parker for GFRby the Natio nal Kidney Foundati on for Adults.The GFR will not calculate if th e sex is unknown or if thepatient's ag e is <18 years. 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 [facility] [id number] 16:10:00 Test Item Value Reference Range Interpretation Comments ACT-ISTAT (test code 275 SEC 74-137 H Perform ed by certified = ACTI) 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 [facility] [id number] 15:41:00 Test Item Value Reference Range Interpretation Comments ACT-ISTAT (test code 359 SEC 74-137 H Perform ed by certified = ACTI) 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 [facility] CBC W/AUTO [id number] 15:02:00 Test Item Value Reference Range Interpretation Comments WHITE BLOOD CELL (test code = 6.7 x10 3/uL 4.5-11.0 N WBC) RED BLOOD CELL (test code = 5.23 x10 6/uL 4.00-5.60 N RBC) HEMOGLOBIN (test code = HGB) 16.7 g/dL 12.5-16.9 N HEMATOCRIT (test code = HCT) 46.6 % 37.5-50.7 N MEAN CELL VOLUME (test code = 89.1 fL 81.0-99.0 N MCV) MEAN CELL HGB (test code = MCH) 31.9 pg 27.0-33.0 N MEAN CELL HGB CONCETRATION 35.8 g/dL 33.0-37.0 N (test code = MCHC) RED CELL DISTRIBUTION WIDTH CV 11.9 % 11.5-14.5 N (test code = RDW) RED CELL DISTRIBUTION WIDTH SD 38.5 fL 37.0-54.0 N (test code = RDW-SD) PLATELET COUNT (test code = 208 x10 3/uL 150-400 N PLT) MEAN PLATELET VOLUME (test code 9.8 fL 7.0-9.0 H = MPV) NEUTROPHIL % (test code = NT%) 52.6 % 56.0-77.0 L IMMATURE GRANULOCYTE % (test 0.3 % 0.0-2.0 N code = IG%) LYMPHOCYTE % (test code = LY%) 31.7 % 14.0-32.0 N MONOCYTE % (test code = MO%) 9.0 % 4.8-9.0 N EOSINOPHIL % (test code = EO%) 5.3 % 0.3-3.7 H BASOPHIL % (test code = BA%) 1.1 % 0.0-2.0 N NUCLEATED RBC % (test code = 0.0 % 0-0 N NRBC%) NEUTROPHIL # (test code = NT#) 3.51 x10 3/uL 2.0-7.6 N IMMATURE GRANULOCYTE # (test 0.02 x10 3/uL 0.00-0.03 N code = IG#) LYMPHOCYTE # (test code = LY#) 2.11 x10 3/uL 1.0-3.8 N MONOCYTE # (test code = MO#) 0.60 x10 3/uL 0.1-0.8 N EOSINOPHIL # (test code = EO#) 0.35 x10 3/uL 0.0-0.2 H BASOPHIL # (test code = BA#) 0.07 x10 3/uL 0.0-0.2 N NUCLEATED RBC # (test code = 0.00 x10 3/uL 0.0-0.1 N NRBC#) MANUAL DIFF REQUIRED (test code NO = MDIFF) BASIC METABOLIC [id number] 14:48:00 Test Item Value Reference Range Interpretation Comments SODIUM (test code = 138 mEq/L 134-147 N NA) POTASSIUM (test code 4.0 mEq/L 3.4-5.0 N = K) CHLORIDE (test code 103 mEq/L 100-108 N = CL) CARBON DIOXIDE (test 25 mEq/l 21-33 N code = CO2) ANION GAP (test code 14 0-20 N = GAP) GLUCOSE (test code = 84 mg/dL 70-110 N GLU) BLOOD UREA NITROGEN 18 mg/dL 7-18 N (test code = BUN) GLOMERULAR 49.6 90-95 L The Glomerular FILTRATION RATE Filtration R ate is a (test code = GFR) calculated parameterbased on serum Creatinine, pat ient age and sex. GFR va luesless than 60 mL/min/ 1.73 square meters a re indicative ofCh ronic Kidney Disease. Values less than 15 mL/min/1.73squa re meters indicate Kidney failure. The calculation forGFR is based on the CKD-EPI (2020) calculat ion. This formulais race indifferent and is the recommended for parker for GFRby the Natio nal Kidney Foundati on for Adults.The GFR will not calculate if th e sex is unknown or if thepatient's ag e is <18 years. CREATININE (test 1.6 mg/dL 0.6-1.3 H code = CREAT) CALCIUM (test code = 9.0 mg/dL 8.0-10.5 N CA) PROTHROMBIN [id number] 14:37:00 Test Item Value Reference Range Interpretation Comments PROTHROMBIN TIME 12.4 SECONDS 9.3-12.9 N PATIENT (test code = PTP) INTERNATIONAL NORMAL 1.1 0.8-1.2 N TARGET INR BY RATIO (test code = INDICATIO N Indication INR) INR1. Prophylax is of venous thrombos is 2.0 - 3.0 (orthoped ic surgery), Proph ylaxis of venous throm bosis (other than hig h-risk surgery), Treat ment of Deep Vein Thrombosis/Pulm onary Embolism, Preve ntion of systemic emb olism - Tissue heart va lves, Acute Myocardia l Infarction (to prevent systemic emboli sm), Valvular heart disease, Atrial Fibrillation, Bileaflet mecha nical valve in aortic position.2. Mec hanical prosthetic valv es (high risk), 2. 5 - 3.5 Presence of Lup us Anticoagulant o r Antiphospholipi d Antibodies, Pre vention of systemic emb olism - Acute Myocardia l Infarction (to prevent recurre nt infarct). - XR CHEST 2 [id number] [facility]:00:[address] [facility] 1965 Sex: M FAX: Nash Avila MD [phone] [place]: St: PRE Name: COLLEEN TROY [facility] : 1965 Age/S: 57/M [address] [place] [address] Unit #: [id number] Loc: [place] [address] Phys: Nash Whiteside MD Acct: [id number] Dis Date: Status: PRE SDC PHONE #: [phone] Exam Date: 08/06/2022 1410 FAX #: [phone] Reason: PRE OP EXAMS: CPT CODE: [id number] XR CHEST 2 V 69838 PROCEDURE INFORMATION: Exam: XR Chest Exam date and time: 08/06/2022 2:08 PM Age: 57 years old Clinical indication: Pre-operative exam; Respiratory screening exam; Additional info: Pre op TECHNIQUE: Imaging protocol: Radiologic exam of the chest. Views: 2 views. PA and Lateral COMPARISON: No relevant prior studies available. FINDINGS: Lungs: There are normal lung volumes without consolidation or interstitial opacities. Pleural spaces: Unremarkable. No pleural effusion. No pneumothorax. Heart/Mediastinum: The heart size is normal. The pulmonary vasculature is normal. The mediastinal contour is normal. The trachea is midline. Bones/joints: No acute abnormality seen. IMPRESSION: No acute cardiopulmonary findings. at 1503 Reported and signed by: Alex Gant M.D. CC: Nash Whiteside MD Technologist: RT Danny(Jennifer) Trnscrd Date/Time/By: 08/06/2022 (3337) : By: Jose Orig Print D/T: S: 08/06/2022 (3035) PAGE 1 Signed ReportNM MYOCARDIUM PERFUSION STRESS AND [id number] 23:23:33Impression: Normal myocardial perfusion scan with preserved ejection fraction andnormal wall thickening.I was present for the stress procedure.Exercise stress myocardial perfusion imaging report Type: Technetium 99 labeled Myoview rest/stress single isotope SPECTimaging with exercise stress and gated SPECT imaging. Indication: coronary artery calcification Clinical history: hyperlipidemia Procedure: Exercise stress test was performed with Severiano protocol. Gated myocardialperfusion imaging was performed at rest following the injection of 15.9millicuries of technetium labeled Myoview and post stress following theinjection of 45 millicuries of technetium labeled tetrofosmin. Findings: The overall quality of the study was good. Stress EKG revealed no inducible ischemia, reported separately. SPECT images demonstrate a small and mild fixed inferior perfusion defectlikely due to diaphragmatic attenuation artifact. Gated SPECT images demonstrate normal wall motion and myocardialthickening. Stress Values: ?EDV = 109 mL; ESV = 43 mL; EF = 61%.Rest Values: ?EDV = 108 mL; ESV = 42 mL; EF = 61%. [facility] Results Inft User - 02/19/2020 5:24 PM CSTExercise stress myocardial perfusion imaging reportType:Technetium 99 labeled Myoview rest/stress single isotope SPECTimaging with exercise stress and gatedSPECT imaging.Indication: coronary artery calcification Clinical history: hyperlipidemiaProcedure:Exercise stress test was performed with Severiano protocol. Gated myocardialperfusion imaging was performedat rest following the injection of 15.9millicuries of technetium labeled Myoview and post stress following theinjection of 45 millicuries of technetium labeled tetrofosmin.Findings:The overall quality of the study was good.Stress EKG revealed no inducible ischemia, reported separately. SPECT images demonstrate a small and mild fixed inferior perfusion defectlikely due to diaphragmatic attenuation artifact. Gated SPECT images demonstrate normal wall motion and myocardialthickening.Stress Values: EDV = 109 mL; ESV = 43 mL; EF = 61%.Rest Values: EDV = 108 mL; ESV = 42 mL; EF = 61%.IMPRESSIONImpression: Normal myocardial perfusion scan with preserved ejection fraction andnormal wall thickening.I was present for the stress procedure.[facility]2020-02-19 14:42:00 Test Item Value Reference Range Interpretation Comments POCT GLU (test code = [id number]) 115 mg/dL 70-110 H Lab Interpretation (test code = Abnormal 12120-9) [facility] [place] Notes Date/Time Note Provider Source 2022-08-11 08:52:00-00:00 [id number] [place] [address] PATIENT NAME: COLLEEN TROY ADMIT DATE: 08/10/22 ACCOUNT NO: [id number] [place] [facility] [place]GE[place] 57 REPORT TYPE: eELECTROCARDIOGRAM REPORT SEX: M ADMITTING PHYSICIAN:Brendan Duran DO ATTENDING PHYSICIAN:Brendan Duran DO Order: [id number] Test Reason : POST PCI Test Date/Time Stamp: TueAug 11 2022 08:52:09 Blood Pressure : / mmHG Vent. Rate : 061 BPM Atrial Rate : 064 BPM P-R Int : 170 ms QRS Dur : 096 ms QT Int : 438 ms P-R-T Axes : 065 039 030 degree s QTc Int : 440 ms Normal sinus rhythm Normal ECG When compared with ECG of 10-AUG-2022 17:15, Significant changes have occurred Confirmed by BILLY CROCKER MD ([id number]) on 08/12/19 1:54:42 PM Referred By: Nash Whiteside Confirmed by:BILLY MACHUCA MD Electronically Signed by Billy Crocker MD on at 4958 PATIENT NAME: COLLEEN TROY 33 2022-08-10 17:15:00-00:00 [id number] [place] [address]758 PATIENT NAME: COLLEEN TROY ADMIT DATE: 08/10/22 ACCOUNT NO: [id number] ROOM NO: [id number] AGE: 57 REPORT TYPE: eELECTROCARDIOGRAM REPORT SEX: M ADMITTING PHYSICIAN:Brendan Duran DO ATTENDING PHYSICIAN:Brendan Duran DO Order: [id number] Test Reason : S/P PCI Test Date/Time Stamp: TueAug 10 2022 17:15:02 Blood Pressure : / mmHG Vent. Rate : 072 BPM Atrial Rate : 072 BPM P-R Int : 178 ms QRS Dur : 094 ms QT Int : 422 ms P-R-T Axes : 072 068 086 degree s QTc Int : 462 ms Normal sinus rhythm with sinus arrhythmia Normal ECG When compared with ECG of 06-AUG-2022 13:53, Significant changes have occurred Confirmed by BILLY CROCKER MD ([id number]) on 08/12/19 1:54:38 PM Referred By: Nash Whiteside Confirmed by:BILLY MACHUCA MD Electronically Signed by Billy Crocker MD on at 1354 PATIENT NAME: COLLEEN TROY 33 2022-08-06 13:53:00-00:00 [id number] [place] [address] PATIENT NAME: COLLEEN TROY ADMIT DATE: ACCOUNT NO: [id number] ROOM NO: AGE: 57 REPORT TYPE: eELECTROCARDIOGRAM REPORT SEX: M ADMITTING PHYSICIAN: ATTENDING PHYSICIAN:Nash Whiteside MD Order: [id number] Test Reason : PREOP Test Date/Time Stamp: TueAug 06 2022 13:53:00 Blood Pressure : / mmHG Vent. Rate : 081 BPM Atrial Rate : 081 BPM P-R Int : 164 ms QRS Dur : 094 ms QT Int : 382 ms P-R-T Axes : 072 068 047 degree s QTc Int : 443 ms Sinus rhythm with premature atrial complexes wit h aberrant conduction Nonspecific ST and T wave abnormality Abnormal ECG No previous ECGs available Confirmed by BILLY CROCKER MD ([id number]) on 08/07/19 7:36:16 PM Referred By: Nash Whiteside Confirmed by:BILLY MACHUCA MD Electronically Signed by Billy Crocker MD on at 1936 PATIENT NAME: COLLEEN TROY 33
[2022-08-12 07:20] LABS: Absolute Lymphocytes (CBC) 1.2 K/uL (0.7-4.9); Hematocrit 46.3 % (39.6-49.0); Lymphocytes % 13.2 % (15.3-44.8); MCV 91.9 fL (80-100); MPV 7.4 fL (7.6-11.3); RBC Red Blood Cell Count 5.04 M/uL (4.33-5.43)
[2022-08-12 07:22] LABS: Protime INR 1.05
--- NOTE | 2022-08-12 07:33 | RAD REPORT ---
EXAM DESCRIPTION: [place] Single View08/12/2022 6:58 am CLINICAL HISTORY: Shortness of breath COMPARISON: July 26, 2022 FINDINGS: The lungs appear clear of acute infiltrate. The heart is normal size. Lungs are moderately hyperaerated A lateral chest x-ray was not obtained today Refer to the July report for recommendation
[2022-08-12 07:38] LABS: Albumin 3.8 g/dL (3.4-5.0); Bilirubin Direct 0.2 mg/dL (0-0.2); Bilirubin Indirect, Calculated 0.5 mg/dL (0.2-0.8); Bilirubin Total 0.7 mg/dL (0.2-1.0); Magnesium 1.9 mg/dL (1.6-2.4); Potassium 4.2 mEq/L (3.5-5.1); Protein, Total 6.9 g/dL (6.4-8.2)
[2022-08-12 07:46] LABS: Troponin High Sensitivity 8377.9 pg/mL (<58.9)
[2022-08-12] MEDS ORDERED: CLOPIDOGREL 75 MG TABLET ONE (07:59)
--- NOTE | 2022-08-12 08:15 | RAD REPORT ---
EXAM DESCRIPTION: CT - Head Brain Wo Cont - 08/12/2022 8:04 am CLINICAL HISTORY: Alteration of awareness/confusion COMPARISON: None TECHNIQUE: Computed axial tomography of the head was obtained. IV contrast was not requested. All CT scans are performed using dose optimization technique as appropriate and may include automated exposure control or mA/KV adjustment according to patient size. FINDINGS: An intracranial bleed is not seen The ventricles are normal in caliber No extra-axial fluid collection is noted. No significant hyperdensity within the brain noted Fluid within the sinuses/ mastoids is not seen. IMPRESSION: No acute intracranial abnormality is seen If patient's symptoms persist MRI of the brain would be recommended
--- NOTE | 2022-08-12 08:51 | ER ---
Nurse's Notes [facility] Name: Denia Troy Age: 57 yrs Sex: Male : 1965 Arrival Date: 08/12/2022 Time: 06:25 Bed 5 Private MD: Diagnosis: Shortness of breath;Dyspnea;Palpitations Presentation: 08/12 06:29 Chief complaint: Patient states: pt had a recent stent placement and started recently as6 taking berlenta and woke up in the night with shortness of breath and dizziness. 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 Coronavirus screen: At this time, the client does not indicate any symptoms associated with coronavirus-19. Ebola Screen: No symptoms or risks identified at this time. Initial Sepsis Screen: Does the patient meet any 2 criteria? No. Patient's initial sepsis screen is negative. Does the patient have a suspected source of infection? No. Patient's initial sepsis screen is negative. Risk Assessment: Do you want to hurt yourself or someone else? Patient reports no desire to harm self or others. Onset of symptoms was August 12, 2022. 06:29 Method Of Arrival: Ambulatory as6 06:29 Acuity: SILVINA 3 as6 Historical: - Allergies: 06:34 No Known Allergies; as6 - PMHx: 06:34 Headache; as6 - PSHx: 06:34 Stented artery; as6 - Immunization history:: Client reports receiving the 2nd dose of the Covid vaccine, moderna. - Social history:: Smoking status: Patient denies any tobacco usage or history of. Screenin:15 [facility] ED Fall Risk Assessment (Adult) History of falling in the last 3 months, ld1 including since admission No falls in past 3 months (0 pts). Abuse screen: Denies threats or abuse. Denies injuries from another. Nutritional screening: No deficits noted. Tuberculosis screening: No symptoms or risk factors identified. Assessment: 07:15 General: Appears in no apparent distress. comfortable, Behavior is cooperative, ld1 anxious. Pain: Denies pain. Neuro: Level of Consciousness is awake, alert, obeys commands, Oriented to person, place, time, situation. Cardiovascular: Capillary refill < 3 seconds Patient's skin is warm and dry. Rhythm is sinus rhythm. Respiratory: Airway is patent Respiratory effort is even, unlabored, Breath sounds are clear bilaterally. GI: Abdomen is flat, non-distended. : No signs and/or symptoms were reported regarding the genitourinary system. EENT: No signs and/or symptoms were reported regarding the EENT system. Derm: No signs and/or symptoms reported regarding the dermatologic system. Musculoskeletal: No signs and/or symptoms reported regarding the musculoskeletal system. Vital Signs: 06:29 BP 107 / 90; Pulse 82; Resp 20 S; Temp 98.1(O); Pulse Ox 100% on R/A; Weight 99.79 kg as6 (R); Height 6 ft. 3 in. (R); Pain 0/10; 07:15 BP 123 / 84; Pulse 70; Resp 18; Pulse Ox 100% on R/A; Pain 0/10; ld1 08:27 BP 130 / 76; Pulse 69; Resp 18; Pulse Ox 96% on R/A; ld1 06:29 Body Mass Index 27.50 (99.79 kg, 190.5 cm) as6 06:29 Pain Scale: Adult as6 07:15 Pain Scale: Adult ld1 ED Course: 06:26 Patient arrived in ED. ag3 06:34 Triage completed. as6 06:35 Arm band placed on. as6 06:56 Reilly Frederick MD is Attending Physician. kdr 07:00 XRAY Chest (1 view) In Process Unspecified. EDMS 07:14 Diana Schneider, MAXIMO is Primary Nurse. ld1 07:15 Patient has correct armband on for positive identification. Placed in gown. Bed in low ld1 position. Call light in reach. Side rails up X2. production superintendent on. Pulse ox on. NIBP on. Door closed. Noise minimized. Warm blanket given. 07:15 Inserted saline lock: 20 gauge in right antecubital area, using aseptic technique. ld1 Blood collected. 07:15 No provider procedures requiring assistance completed. ld1 08:04 CT Head Brain wo Cont In Process Unspecified. EDMS 08:50 Anton Banuelos MD is Hospitalizing Provider. kdr 09:11 Patient admitted, IV remains in place. ss Administered Medications: 09:01 Drug: Clopidogrel PO 600 mg Route: PO; ld1 Medication: 07:15 VIS not applicable for this client. ld1 Outcome: 08:51 Decision to Hospitalize by Provider. kdr 09:11 Admitted to Test Administrator accompanied by nurse, via stretcher, on monitor. 09:11 Instructed on the need for admit. 09:21 Patient left the ED. ph Signatures: Dispatcher [employer] EDMS Reilly Frederick MD MD kdr Blanchard, Shelby, RN RN ss Carol Hernandez RN RN Cathy Alvarado Lauren, RN RN ld1 Germán Acosta RN RN as6
--- NOTE | 2022-08-12 08:52 | EDPHYS ---
Physician Documentation [facility] Name: Denia Troy Age: 57 yrs Sex: Male : 1965 Arrival Date: 08/12/2022 Time: 06:25 Bed 5 Private MD: ED Physician Reilly Frederick HPI: 08/12 07:10 This 57 yrs old Male presents to ER via Ambulatory with complaints of Shortness Of kdr Breath, Irregular Pulse, POST SURGICAL PROBLEM. 07:10 The patient has shortness of breath at rest. Onset: The symptoms/episode began/occurred kdr suddenly, at 03:30. Duration: The symptoms are intermittent, with episodes lasting seconds at a time, with no pattern. The patient's shortness of breath has no apparent modifying factors. Associated signs and symptoms: Pertinent positives: loss of consciousness, nausea, Pertinent negatives: chest pain, non-productive cough, productive cough, diaphoresis, dizziness, fever, hemoptysis, numbness in extremities, visual changes, vomiting. Severity of symptoms: At their worst the symptoms were mild incapacitating in the emergency department the symptoms have improved mildly. The patient has not experienced similar symptoms in the past. The patient has been recently seen by a physician: The patient had one stent placed by Dr. Whiteside on Tuesday at [facility] and was discharged after an o/w uneventful placement of a single stent. The patient took his first bah of Brlanta last evening at dinner time and then went to bed without complication of concern until this morning when he awoke SOB.. The patient continues to be anxious/tremulous in the ED and concerned that he is having a reaction to the new medication (for which an internet search by family indicated that Theophylline was the treatment for adverse reactions).. Historical: - Allergies: 06:34 No Known Allergies; as6 - PMHx: 06:34 Headache; as6 - PSHx: 06:34 Stented artery; as6 - Immunization history:: Client reports receiving the 2nd dose of the Covid vaccine, moderna. - Social history:: Smoking status: Patient denies any tobacco usage or history of. ROS: 07:10 Constitutional: Negative for fever, chills, weight loss he is anxious Eyes: Negative kdr for injury, pain, redness, and discharge, Neck: Negative for injury, pain, and swelling, Cardiovascular: Negative for chest pain, palpitations, and edema, Abdomen/GI: Negative for abdominal pain, nausea, vomiting, diarrhea, and constipation, Back: Negative for injury and pain, : Negative for injury, bleeding, discharge, and swelling, MS/Extremity: Negative for injury and deformity, Skin: Negative for injury, rash, and discoloration, Neuro: Negative for headache, weakness, numbness, tingling, and seizure activity. Allergy/Immunology: Negative for hives, rash, and allergies, Endocrine: Negative for neck swelling, polydipsia, polyuria, polyphagia, and marked weight changes, Hematologic/Lymphatic: Negative for swollen nodes, abnormal bleeding, and unusual bruising. 07:10 Psych: Positive for anxiety, Negative for depression, drug dependence, alcohol dependence, auditory hallucinations, visual hallucinations, homicidal ideation, insomnia, suicide gesture, suicidal ideation. Exam: 07:10 Constitutional: This is a well developed, well nourished patient who is awake, alert, kdr and in no acute distress. Head/Face: Normocephalic, atraumatic. Eyes: Pupils equal round and reactive to light, extra-ocular motions intact. Lids and lashes normal. Conjunctiva and sclera are non-icteric and not injected. Cornea within normal limits. Periorbital areas with no swelling, redness, or edema. Neck: Trachea midline, no thyromegaly or masses palpated, and no cervical lymphadenopathy. Supple, full range of motion without nuchal rigidity, or vertebral point tenderness. No Meningismus. Chest/axilla: Normal chest wall appearance and motion. Nontender with no deformity. No lesions are appreciated. Cardiovascular: Regular rate and rhythm with a normal S1 and S2. No gallops, murmurs, or rubs. Normal PMI, no JVD. No pulse deficits. Respiratory: Lungs have equal breath sounds bilaterally, clear to auscultation and percussion. No rales, rhonchi or wheezes noted. No increased work of breathing, no retractions or nasal flaring. Abdomen/GI: Soft, non-tender, with normal bowel sounds. No distension or tympany. No guarding or rebound. No evidence of tenderness throughout. Back: No spinal tenderness. No costovertebral tenderness. Full range of motion. Skin: Warm, dry with normal turgor. Normal color with no rashes, no lesions, and no evidence of cellulitis. MS/ Extremity: Pulses equal, no cyanosis. Neurovascular intact. Full, normal range of motion. Neuro: Awake and alert, GCS 15, oriented to person, place, time, and situation. Cranial nerves II-XII grossly intact. Motor strength 5/5 in all extremities. Sensory grossly intact. Cerebellar exam normal. Normal gait. 07:10 Psych: Behavior/mood is pleasant, cooperative, anxious, Affect is calm, Oriented to person, place, time, Patient has no thoughts/intents to harm self or others. Judgement / Insight is normal. Vital Signs: 06:29 BP 107 / 90; Pulse 82; Resp 20 S; Temp 98.1(O); Pulse Ox 100% on R/A; Weight 99.79 kg as6 (R); Height 6 ft. 3 in. (R); Pain 0/10; 07:15 BP 123 / 84; Pulse 70; Resp 18; Pulse Ox 100% on R/A; Pain 0/10; ld1 08:27 BP 130 / 76; Pulse 69; Resp 18; Pulse Ox 96% on R/A; ld1 06:29 Body Mass Index 27.50 (99.79 kg, 190.5 cm) as6 06:29 Pain Scale: Adult as6 07:15 Pain Scale: Adult ld1 MDM: 07:10 Data reviewed: vital signs, nurses notes, lab test result(s), radiologic studies. kdr Management of patient was discussed with the following: Paper Machine Back Tender: Stevo. 08:51 Patient medically screened. kdr 08/12 06:40 Order name: Basic Metabolic Panel; Complete Time: 08:48 08/12 06:40 Order name: CBC with Diff; Complete Time: 08:48 08/12 06:40 Order name: LFT's; Complete Time: 08:48 08/12 06:40 Order name: Magnesium; Complete Time: 08:48 08/12 06:40 Order name: NT PRO-BNP; Complete Time: 08:48 08/12 06:40 Order name: PT-INR; Complete Time: 07:25 08/12 06:40 Order name: Troponin HS; Complete Time: 08:48 08/12 06:40 Order name: XRAY Chest (1 view); Complete Time: 08:48 as6 08/12 07:49 Order name: CT Head Brain wo Cont; Complete Time: 08:48 kdr 08/12 08:13 Order name: CL LEFT HEART WITHOUT LV EDMS 08/12 08:56 Order name: Echo with Doppler EDMS 08/12 06:40 Order name: EKG; Complete Time: 06:41 08/12 06:40 Order name: Cardiac monitoring; Complete Time: 07:01 08/12 06:40 Order name: EKG - Nurse/Tech; Complete Time: 07:01 08/12 06:40 Order name: IV Saline Lock; Complete Time: 07:15 08/12 06:40 Order name: Labs collected and sent; Complete Time: 07:15 08/12 06:40 Order name: O2 Per Protocol; Complete Time: 07:03 08/12 06:40 Order name: O2 Sat Monitoring; Complete Time: 07:03 Administered Medications: 09:01 Drug: Clopidogrel PO 600 mg Route: PO; ld1 Disposition Summary: 08/12/22 08:51 Hospitalization Ordered Hospitalization Status: Inpatient Admission kdr Provider: Anton Banuelos Location: Telemetry/MedSurg (Inpatient) kdr Condition: Fair kdr Problem: new kdr Symptoms: have improved kdr Bed/Room Type: Standard kdr Room Assignment: kdr Diagnosis - Shortness of breath kdr - Dyspnea kdr - Palpitations kdr Forms: - Medication Reconciliation Form kdr - SBAR form kdr Signatures: Dispatcher [employer] EDReilly Uribe MD MD kdr Diana Schneider RN RN ld1 Germán Acosta RN RN as6
[2022-08-12] MEDS ORDERED: MIDAZOLAM HCL 2 MG/2 ML INJ ONE (09:22)
[2022-08-12] MEDS ORDERED: HEPA 1000U/500MLS 2,000 UNIT/1,000 ML BAG IV ONE (09:22)
[2022-08-12] MEDS ORDERED: HEPARIN 5000 UNIT/ML 1 ML VIAL ONE (09:22)
[2022-08-12] MEDS ORDERED: FENTANYL CITR 100 MCG/2 ML ONE (09:22)
[2022-08-12] MEDS ORDERED: NA CHLORIDE 0.9% 1,000 ML ONE (09:23)
[2022-08-12] MEDS ORDERED: HEPARIN 10,000 UNIT/10 ML VIAL IV ONE (09:23)
[2022-08-12] MEDS ORDERED: ATROPINE SULF 1 MG/10 ML SYR IV ONE (09:23)
[2022-08-12] MEDS ORDERED: VERAPAMIL HCL 10 MG/4 ML VIAL IV ONE (09:23)
[2022-08-12] MEDS ORDERED: ACETAMINOPHEN 500 MG TAB PO PRN (09:48)
[2022-08-12] MEDS ORDERED: ONDANSETRON 4 MG/2 ML VIAL IV PRN (09:48)
[2022-08-12] MEDS: NA CHLORIDE 0.9% 1,000 ML IV SCH ×2 (11:50→19:02)
[2022-08-12 13:18] VITALS: BMI 27.5
--- NOTE | 2022-08-12 17:39 | EKG ---
Test Date: 2022-08-12 Test Time: 06:58:25 Pathology Laboratory Director: MEASUREMENT RESULTS: Intervals: Rate: 66 LA: 172 QRSD: 102 QT: 448 QTc: 469 [place]: P: 72 LA: 172 QRS: 95 T: 32 INTERPRETIVE STATEMENTS: Sinus rhythm with premature atrial complexes Rightward axis Borderline ECG Compared to ECG 07/26/2022 13:41:59 Atrial premature complex(es) now present Right-axis deviation now present ST (T wave) deviation no longer present Electronically Signed On 08-12-22 17:38:55 CDT by Nash Whiteside
[2022-08-12] MEDS ORDERED: ATORVASTATIN 80 MG TAB PO SCH (21:00)
[2022-08-12 21:33] VITALS: O2SAT 97
[2022-08-13] MEDS: NA CHLORIDE 0.9% 1,000 ML IV SCH (02:36)
[2022-08-13 04:23] LABS: Absolute Lymphocytes (CBC) 1.9 K/uL (0.7-4.9); Hematocrit 43.2 % (39.6-49.0); Lymphocytes % 23.9 % (15.3-44.8); MCV 92.2 fL (80-100); MPV 7.9 fL (7.6-11.3); RBC Red Blood Cell Count 4.68 M/uL (4.33-5.43)
[2022-08-13 04:39] LABS: Potassium 4.3 mEq/L (3.5-5.1)
--- NOTE | 2022-08-13 06:52 | ECHO ---
HEIGHT: 6 ft 3 in WEIGHT: 220 lb 0 oz DATE OF STUDY: 08/12/[address]: Nash Whiteside 2-DIMENSIONAL: YES M.MODE: YES DOPPLER: YES COLOR FLOW: YES TDS: PORTABLE: YES DEFINITY: BUBBLE STUDY: DIAGNOSIS: SHORTNESS OF BREATH CARDIAC HISTORY: CATHERIZATION: SURGERY: PROSTHETIC VALVE: PACEMAKER: MEASUREMENTS (cm) DIASTOLIC (NORMALS) SYSTOLIC (NORMALS) IVSd 1.1 (0.6-1.2) LA Diam 3.4 (1.9-4.0) LVEF 60% LVIDd 4.2 (3.5-5.7) LVIDs 2.9 (2.0-3.5) %FS 32% LVPWd 1.3 (0.6-1.2) Ao Diam 3.1 (2.0-3.7) 2 DIMENSIONAL ASSESSMENT: RIGHT ATRIUM: NORMAL LEFT ATRIUM: NORMAL RIGHT VENTRICLE: NORMAL LEFT VENTRICLE: NORMAL TRICUSPID VALVE: NORMAL MITRAL VALVE: TRACE MITRAL REGURGITATION PULMONIC VALVE: NORMAL AORTIC VALVE: NORMAL PERICARDIAL EFFUSION: NONE AORTIC ROOT: NORMAL LEFT VENTRICULAR WALL MOTION: NORMAL DOPPLER/COLOR FLOW: TRACE MITRAL REGURGITATION COMMENTS: 1. NORMAL LEFT VENTRICULAR EJECTION FRACTION 55-60% 2. NORMAL WALL MOTION 3. NORMAL DIASTOLIC FUNCTION 4. TRACE MITRAL REGURGITATION TECHNOLOGIST: THU SAWANT
[2022-08-13 08:09] VITALS: BP 132/73; TEMP 98
[2022-08-13] MEDS ORDERED: CLOPIDOGREL 75 MG TABLET PO SCH (09:00)
[2022-08-13] MEDS ORDERED: ATORVASTATIN 80 MG TAB PO SCH (09:00)
[2022-08-13] MEDS ORDERED: ASPIRIN EC 81 MG TAB PO SCH ×2 (09:00)
--- NOTE | 2022-08-13 14:00 | P.SSS ---
Patient History Date of Service: 08/13/22 Reason for admission: REACTION TO BRILLINTA History of Present Illness: COLLEEN HAS HAD RECENT STENT FOR LAD AND WAS SENT HOME ON BRILLINTA. HE HAD DYPSNEA AT REST 3 TIMES AND ONE TIME HAD R FACIAL NUMNESS AND SHAKING. ALL BETTER ON ARRIVAL . HE HAD CATH DONE BY AGAIN THAT SHOWS CLEAN STENT. THIS MOST LIKELY A BRILLINTA REACTION. THIS AM HE IS NORMAL AND IS STABLE TO GO HOME ON ASPIRIN AND PLAVIX. Allergies ticagrelor [From Brilinta] Allergy (Verified 08/13/22 08:03) Shortness of breath Home medications list reviewed: Yes Home Medications: Aspirin [Aspirin EC 81 MG] 81 mg PO DAILY 08/12/22 Atorvastatin Calcium [Lipitor] 80 mg PO DAILY 08/12/22 Clopidogrel Bisulfate [Plavix*] 75 mg PO DAILY #90 08/13/22 - Past Medical/Surgical History Has patient received pneumonia vaccine in the past: Yes Diabetic: No - Family History Mother -: Other (see notes) Notes: A-Fib Father -: Hypertension, Other (see notes) Notes: HLD, TIA - Social History Smoking Status: Never smoker Alcohol use: Yes CD- Drugs: No Place of Residence: Home Review of Systems 10-point ROS is otherwise unremarkable Physical Examination - Vital Signs Temperature: 98.0 F Blood Pressure: 132/73 Pulse: 93 Respirations: 16 Pulse Ox (%): 97 - Physical Exam General: Alert, In no apparent distress HEENT: Atraumatic, PERRLA, Mucous membr. moist/pink, EOMI, Sclerae nonicteric Neck: Supple, 2+ carotid pulse no bruit, No LAD, Without JVD or thyroid abnormality Respiratory: Clear to auscultation bilaterally, Normal air movement Cardiovascular: Regular rate/rhythm, Normal S1 S2 Gastrointestinal: Normal bowel sounds, No tenderness Musculoskeletal: No tenderness Integumentary: No rashes Neurological: Normal gait, Normal speech, Normal strength at 5/5 x4 extr, Normal tone, Normal affect Lymphatics: No axilla or inguinal lymphadenopathy - Diagnosis (Problem(s)) (1) Drug reaction Status: Acute Plan: BRILLINTA REACTION. STOP MED. ASPIRIN AND PLAVIX DAILY. FU IN OFFICE ONE WEEK. FU WITH DR. HORN. Qualifiers: Encounter type: initial encounter Qualified Code(s): T50.905A - Adverse effect of unspecified drugs, medicaments and biological substances, initial encounter - Disposition Disposition: DC HOME/HOME HEALTH CARE Condition: FAIR
== END 2022-08-13 09:50 | disposition home health service (06) ==
LOC: ER 06:25 → ERHOLD 09:50 → INTOOBSV 09:50 → 4TH 12:24
PROVIDERS: ADMIT Internal Medicine; ATTEND Internal Medicine
DX: T50.905A Adverse effect of unspecified drugs, medicaments and biological substances, initial encounter (principal); R06.02 Shortness of breath; R06.00 Dyspnea, unspecified; R00.2 Palpitations; Z98.890 Other specified postprocedural states
CPT/HCPCS: 93005; 93306; 85025 ×2; 80048 ×2; 36415; 83735; 85610; 80076; 84484 ×2; 83880; 70450; 71045; 93458; 76937; 99285; C1893; Q9966; J1644; J2250; J7030 ×3; J0461; J3010